=== PATIENT | female | born 1955 | race Caucasian/White ===

== ENCOUNTER 2019-04-12 09:44 | Emergency (ER) | payer OTHER, SELFPAY ==
[2019-04-12] MEDS ORDERED: Dexamethasone 10 MG/ML VIAL ONE (10:18)
[2019-04-12] MEDS ORDERED: Famotidine 20 MG TAB ONE (10:30)
== END 2019-04-12 10:47 | disposition home or self-care (01) ==
LOC: MADERS 09:44
DX: L50.8 Other urticaria (principal); K21.9 Gastro-esophageal reflux disease without esophagitis; I10 Essential (primary) hypertension; J44.9 Chronic obstructive pulmonary disease, unspecified; Z87.891 Personal history of nicotine dependence; F41.9 Anxiety disorder, unspecified; Z79.899 Other long term (current) drug therapy; Z79.51 Long term (current) use of inhaled steroids
CPT/HCPCS: 96372; 99282; J1100

== ENCOUNTER 2021-11-13 11:15 | Inpatient (IN) | payer MEDICARE ==
[2021-11-13 15:23] VITALS: BMI 27.6
[2021-11-13] MEDS ORDERED: Non-Formulary Item 1 EACH (Esomeprazole Magnesium [Nexium 24hr] 20 MG Capsule.Dr) PO PRN (17:09)
[2021-11-13] MEDS: Famotidine 20 MG TAB PO SCH (21:32)
[2021-11-13] MEDS: Hydroxychloroquine Sulfate 200 MG TAB PO SCH (21:32)
[2021-11-13] MEDS: Gabapentin 300 MG CAP PO SCH (21:32)
[2021-11-13] MEDS: Metoprolol Tartrate 25 MG TAB PO SCH (21:33)
[2021-11-13] MEDS: Doxepin HCl 25 MG CAP PO SCH (21:33)
[2021-11-13] MEDS: Mometasone/Formoterol 200/5 60 PUFF INH SCH (21:36)
[2021-11-14 05:59] LABS: Hemoglobin 13.9 g/dL (12.0-16.0); Mean Corpuscular HGB CONC 28.6 g/dL (32.0-36.0); Mean Corpuscular Hemoglobin 26.8 pg (27.0-31.0); Mean Corpuscular Volume 93.9 fL (78.0-98.0); Mean Platelet Volume 8.8 fL (7.4-10.4); Platelet Count 291 thou/uL (130-400); RBC Distribution Width 17.8 % (11.5-14.5); Red Blood Cell (RBC) Count 5.17 mill/uL (4.20-5.40); White Blood Cell (WBC) Count 12.6 thou/uL (4.8-10.8)
[2021-11-14 06:15] LABS: Anion Gap 12 mmol/L (10-20); BUN (Urea Nitrogen) 32 mg/dL (9.8-20.1); Calc. Creatinine Clearance 99 mL/min (70-130); Calcium 9.2 mg/dL (7.8-10.44); Carbon Dioxide 28 mmol/L (23-31); Chloride 107 mmol/L (98-107); Glucose 87 mg/dL (80-115); Potassium 3.8 mmol/L (3.5-5.1); Sodium 143 mmol/L (136-145)
[2021-11-14] MEDS: Mometasone/Formoterol 200/5 60 PUFF INH SCH ×2 (08:45→20:47)
[2021-11-14] MEDS: cycloSPORINE, Modified 100 MG CAP PO SCH (08:48)
[2021-11-14] MEDS: Doxepin HCl 25 MG CAP PO SCH ×2 (08:48→20:21)
[2021-11-14] MEDS: Aspirin 325 MG TAB PO SCH (08:48)
[2021-11-14] MEDS: Hydroxychloroquine Sulfate 200 MG TAB PO SCH ×2 (08:48→20:21)
[2021-11-14] MEDS: Metoprolol Tartrate 25 MG TAB PO SCH ×2 (08:49→20:22)
[2021-11-14] MEDS: Famotidine 20 MG TAB PO SCH ×2 (08:49→20:22)
[2021-11-14] MEDS ORDERED: Gabapentin 300 MG CAP PO SCH ×2 (09:00→22:00)
[2021-11-14] MEDS: Gabapentin 300 MG CAP PO SCH ×3 (20:22→21:49)
[2021-11-14] MEDS ORDERED: Mag-Al Plus 1200 MG/1200 MG/120 MG/30 ML UDCUP PO PRN (21:16)
[2021-11-15] MEDS: Aspirin 325 MG TAB PO SCH (08:20)
[2021-11-15] MEDS: Doxepin HCl 25 MG CAP PO SCH ×2 (08:20→20:39)
[2021-11-15] MEDS: cycloSPORINE, Modified 100 MG CAP PO SCH (08:21)
[2021-11-15] MEDS: Hydroxychloroquine Sulfate 200 MG TAB PO SCH ×2 (08:21→20:34)
[2021-11-15] MEDS: Famotidine 20 MG TAB PO SCH ×2 (08:21→20:35)
[2021-11-15] MEDS: Metoprolol Tartrate 25 MG TAB PO SCH ×2 (08:21→20:35)
[2021-11-15] MEDS: Gabapentin 300 MG CAP PO SCH ×2 (08:21→20:35)
[2021-11-15] MEDS: Mometasone/Formoterol 200/5 60 PUFF INH SCH ×2 (08:22→20:41)
[2021-11-15] MEDS: Senokot S 8.6-50 MG TAB PO PRN (20:34)
[2021-11-16] MEDS: Mometasone/Formoterol 200/5 60 PUFF INH SCH ×2 (08:12→22:06)
[2021-11-16] MEDS: Gabapentin 300 MG CAP PO SCH ×2 (08:12→22:01)
[2021-11-16] MEDS: cycloSPORINE, Modified 100 MG CAP PO SCH (08:13)
[2021-11-16] MEDS: Aspirin 325 MG TAB PO SCH (08:13)
[2021-11-16] MEDS: Famotidine 20 MG TAB PO SCH ×2 (08:13→22:07)
[2021-11-16] MEDS: Doxepin HCl 25 MG CAP PO SCH ×2 (08:13→22:01)
[2021-11-16] MEDS: Hydroxychloroquine Sulfate 200 MG TAB PO SCH ×2 (08:13→22:02)
[2021-11-16] MEDS: Metoprolol Tartrate 25 MG TAB PO SCH ×2 (08:15→22:02)
[2021-11-16] MEDS: Senokot S 8.6-50 MG TAB PO PRN (22:00)
[2021-11-17] MEDS: Gabapentin 300 MG CAP PO SCH ×2 (08:39→21:01)
[2021-11-17] MEDS: Famotidine 20 MG TAB PO SCH ×2 (08:39→21:02)
[2021-11-17] MEDS: Metoprolol Tartrate 25 MG TAB PO SCH ×2 (08:39→21:02)
[2021-11-17] MEDS: cycloSPORINE, Modified 100 MG CAP PO SCH (08:39)
[2021-11-17] MEDS: Aspirin 325 MG TAB PO SCH (08:39)
[2021-11-17] MEDS: Hydroxychloroquine Sulfate 200 MG TAB PO SCH ×2 (08:39→21:02)
[2021-11-17] MEDS: Doxepin HCl 25 MG CAP PO SCH ×2 (08:41→21:02)
[2021-11-17] MEDS: Mometasone/Formoterol 200/5 60 PUFF INH SCH ×2 (08:43→21:08)
[2021-11-17 19:50] LABS: SARS-CoV-2 PCR by NAA Not Detected (NotDetected)
[2021-11-18] MEDS: cycloSPORINE, Modified 100 MG CAP PO SCH (09:08)
[2021-11-18] MEDS: Metoprolol Tartrate 25 MG TAB PO SCH ×2 (09:08→21:16)
[2021-11-18] MEDS: Gabapentin 300 MG CAP PO SCH ×2 (09:08→21:16)
[2021-11-18] MEDS: Aspirin 325 MG TAB PO SCH (09:08)
[2021-11-18] MEDS: Hydroxychloroquine Sulfate 200 MG TAB PO SCH ×2 (09:08→21:16)
[2021-11-18] MEDS: Doxepin HCl 25 MG CAP PO SCH ×2 (09:08→21:16)
[2021-11-18] MEDS: Famotidine 20 MG TAB PO SCH ×2 (09:09→21:16)
[2021-11-18] MEDS: Mometasone/Formoterol 200/5 60 PUFF INH SCH ×2 (09:09→21:17)
[2021-11-19 07:35] VITALS: BP 113/72; TEMP 97.8
[2021-11-19] MEDS: Famotidine 20 MG TAB PO SCH (08:22)
[2021-11-19] MEDS: Doxepin HCl 25 MG CAP PO SCH (08:22)
[2021-11-19] MEDS: Aspirin 325 MG TAB PO SCH (08:23)
[2021-11-19] MEDS: cycloSPORINE, Modified 100 MG CAP PO SCH (08:23)
[2021-11-19] MEDS: Hydroxychloroquine Sulfate 200 MG TAB PO SCH (08:23)
[2021-11-19] MEDS: Gabapentin 300 MG CAP PO SCH (08:23)
[2021-11-19] MEDS: Mometasone/Formoterol 200/5 60 PUFF INH SCH (08:24)
== END 2021-11-19 12:15 | disposition home or self-care (01) | DRG 948 ==
LOC: MADMS 13:19
PROVIDERS: ADMIT Family Medicine; ATTEND Family Medicine
DX: R53.81 Other malaise (principal); J44.9 Chronic obstructive pulmonary disease, unspecified; K21.9 Gastro-esophageal reflux disease without esophagitis; I10 Essential (primary) hypertension; R13.10 Dysphagia, unspecified; Z20.822 Contact with and (suspected) exposure to COVID-19; Z87.01 Personal history of pneumonia (recurrent); Z87.891 Personal history of nicotine dependence; Z99.81 Dependence on supplemental oxygen; Z87.440 Personal history of urinary (tract) infections; Z79.899 Other long term (current) drug therapy; Z79.82 Long term (current) use of aspirin
CPT/HCPCS: 36415; 80048; 85027; 94640; 94664; J7502; J7620; U0003; U0005

== ENCOUNTER 2021-11-26 15:02 | Outpatient (CLI) | payer MEDICARE | END 2021-11-26 15:03 | disposition home or self-care (01) | LOC: MADRAD 15:02 | PROVIDERS: ATTEND Family Medicine | DX: J44.9 Chronic obstructive pulmonary disease, unspecified (principal); J98.4 Other disorders of lung | CPT/HCPCS: 71046 ==

== ENCOUNTER 2021-12-29 15:09 | Outpatient (CLI) | payer MEDICARE | END 2021-12-29 15:10 | disposition home or self-care (01) | LOC: MADRAD 15:09 | PROVIDERS: ATTEND Family Medicine | DX: R91.8 Other nonspecific abnormal finding of lung field (principal); J98.4 Other disorders of lung | CPT/HCPCS: 71046 ==

== ENCOUNTER 2022-09-01 10:34 | Observation (INO) | payer MEDICARE ==
[2022-09-01] MEDS ORDERED: Ipratropium/Albuterol 3 ML NEB ONE (10:46)
[2022-09-01] MEDS ORDERED: methylPREDNISolone Sod Succ/PF 125 MG/2 ML VIAL ONE (10:46)
[2022-09-01 11:13] LABS: ALT (SGPT) 24 U/L (8-55); AST (SGOT) 24 U/L (5-34); Albumin 4.2 g/dL (3.4-4.8); Alkaline Phosphatase 95 U/L (40-110); Anion Gap 16 mmol/L (10-20); BUN (Urea Nitrogen) 23 mg/dL (9.8-20.1); Bilirubin, Total 0.4 mg/dL (0.2-1.2); Calc. Creatinine Clearance 0 mL/min (70-130); Calcium 10.2 mg/dL (7.8-10.44); Carbon Dioxide 32 mmol/L (23-31); Chloride 95 mmol/L (98-107); Estimated GFR 72; Globulin 3.3 g/dL (2.4-3.5); Glucose 107 mg/dL (80-115); Magnesium 1.5 mg/dL (1.6-2.6); Potassium 4.9 mmol/L (3.5-5.1); Protein, Total 7.5 g/dL (5.8-8.1); Sodium 138 mmol/L (136-145)
[2022-09-01 11:14] LABS: Band 12 % (5-11); Eosinophils 3 % (0-10); Lymphocytes 20 % (21-51); MDiff Complete? YES; Mean Corpuscular HGB CONC 31.7 g/dL (32.0-36.0); Mean Corpuscular Hemoglobin 29.6 pg (27.0-31.0); Mean Corpuscular Volume 93.3 fl (78.0-98.0); Mean Platelet Volume 8.9 fL (7.4-10.4); Monocytes 12 % (0-10); Neutrophil 53 % (42-75); Platelet Count 192 10x3/uL (130-400); Platelet Morphology Comment Appears Adequate; RBC Distribution Width 13.9 % (11.5-14.5); RBC Morphology Normal; Red Blood Cell (RBC) Count 5.42 mill/uL (4.20-5.40); White Blood Cell (WBC) Count 9.7 10x3/uL (4.8-10.8)
[2022-09-01] MEDS ORDERED: cefTRIAXone\\ROCEPHIN 2 GM VIAL ONE (11:21)
[2022-09-01] MEDS ORDERED: Sodium Chloride 0.9% 250 ML 250 ML ONE (11:21)
[2022-09-01] MEDS ORDERED: Sodium Chloride 0.9% 100 ML ONE (11:21)
[2022-09-01] MEDS ORDERED: Azithromycin 500 MG VIAL ONE (11:21)
[2022-09-01] MEDS ORDERED: Sodium Chloride 0.9% 500 ML ONE ×3 (12:05→13:49)
[2022-09-01] MEDS ORDERED: Magnesium 2 GM/50 ML BAG (IN WATER) ONE (13:03)
[2022-09-01 14:06] VITALS: BMI 31.1
[2022-09-01] MEDS ORDERED: AUTO INJCT IM PRN (16:33)
[2022-09-01] MEDS ORDERED: EPINEPHRINE 0.3 MG/0.3 ML IM PRN (16:33)
[2022-09-01] MEDS: Ipratropium/Albuterol 3 ML NEB NEB SCH ×2 (17:26→20:17)
[2022-09-01] MEDS: Hydroxychloroquine Sulfate 200 MG TAB PO SCH (20:16)
[2022-09-01] MEDS: Doxepin HCl 25 MG CAP PO SCH (20:17)
[2022-09-01] MEDS: Metoprolol Tartrate 25 MG TAB PO SCH (20:17)
[2022-09-02] MEDS: methylPREDNISolone Sod Succ/PF 125 MG/2 ML VIAL IVP SCH ×2 (00:05→04:58)
[2022-09-02] MEDS: Ipratropium/Albuterol 3 ML NEB NEB SCH ×7 (00:09→23:39)
[2022-09-02 07:17] LABS: Anion Gap 14 mmol/L (10-20); BUN (Urea Nitrogen) 21 mg/dL (9.8-20.1); Calc. Creatinine Clearance 90 mL/min (70-130); Calcium 8.9 mg/dL (7.8-10.44); Carbon Dioxide 30 mmol/L (23-31); Chloride 100 mmol/L (98-107); Estimated GFR 88; Glucose 170 mg/dL (80-115); Potassium 4.6 mmol/L (3.5-5.1); Sodium 139 mmol/L (136-145)
[2022-09-02] MEDS: Doxepin HCl 25 MG CAP PO SCH ×2 (08:50→20:08)
[2022-09-02] MEDS: Metoprolol Tartrate 25 MG TAB PO SCH ×2 (08:50→20:10)
[2022-09-02] MEDS: Doxycycline 100 MG CAP PO SCH ×2 (08:50→20:08)
[2022-09-02] MEDS: cycloSPORINE, Modified 100 MG CAP PO SCH (08:50)
[2022-09-02] MEDS: Hydroxychloroquine Sulfate 200 MG TAB PO SCH ×2 (08:50→20:08)
[2022-09-02] MEDS: Aspirin 325 MG TAB PO SCH (08:51)
[2022-09-02] MEDS ORDERED: Acetaminophen 500 MG TAB PO PRN (09:43)
[2022-09-02] MEDS: methylPREDNISolone Sod Succ 40 MG VIAL IVP SCH ×3 (12:50→23:40)
[2022-09-02] MEDS: cefTRIAXone\\ROCEPHIN 1 GM in Sodium Chloride 0.9% 100 ML IVPB SCH (12:50)
[2022-09-02] MEDS ORDERED: Benzonatate 100 MG CAP PO SCH (23:30)
[2022-09-03] MEDS: Ipratropium/Albuterol 3 ML NEB NEB SCH ×4 (04:58→20:30)
[2022-09-03] MEDS: methylPREDNISolone Sod Succ 40 MG VIAL IVP SCH ×3 (05:00→20:33)
[2022-09-03] MEDS: Doxepin HCl 25 MG CAP PO SCH ×2 (09:56→20:32)
[2022-09-03] MEDS: Doxycycline 100 MG CAP PO SCH ×2 (09:56→20:32)
[2022-09-03] MEDS: Aspirin 325 MG TAB PO SCH (09:56)
[2022-09-03] MEDS: Metoprolol Tartrate 25 MG TAB PO SCH ×2 (09:56→20:32)
[2022-09-03] MEDS: Benzonatate 100 MG CAP PO SCH ×3 (09:57→20:32)
[2022-09-03] MEDS: cycloSPORINE, Modified 100 MG CAP PO SCH (09:57)
[2022-09-03] MEDS: Hydroxychloroquine Sulfate 200 MG TAB PO SCH ×2 (09:57→20:32)
[2022-09-03] MEDS ORDERED: methylPREDNISolone Sod Succ/PF 125 MG/2 ML VIAL IVP SCH (12:00)
[2022-09-03] MEDS: cefTRIAXone\\ROCEPHIN 1 GM in Sodium Chloride 0.9% 100 ML IVPB SCH (12:45)
[2022-09-04] MEDS: Ipratropium/Albuterol 3 ML NEB NEB SCH ×3 (02:20→14:35)
[2022-09-04] MEDS: methylPREDNISolone Sod Succ 40 MG VIAL IVP SCH ×2 (05:23→14:30)
[2022-09-04] MEDS: Aspirin 325 MG TAB PO SCH (09:43)
[2022-09-04] MEDS: Benzonatate 100 MG CAP PO SCH ×2 (09:43→14:35)
[2022-09-04] MEDS: Hydroxychloroquine Sulfate 200 MG TAB PO SCH (09:43)
[2022-09-04] MEDS: cycloSPORINE, Modified 100 MG CAP PO SCH (09:44)
[2022-09-04] MEDS: Doxycycline 100 MG CAP PO SCH (09:44)
[2022-09-04] MEDS: Doxepin HCl 25 MG CAP PO SCH (09:44)
[2022-09-04] MEDS: Metoprolol Tartrate 25 MG TAB PO SCH (09:44)
[2022-09-04] MEDS ORDERED: Loratadine 10 MG TAB PO SCH (09:45)
[2022-09-04] MEDS: cefTRIAXone\\ROCEPHIN 1 GM in Sodium Chloride 0.9% 100 ML IVPB SCH (11:45)
[2022-09-04 12:02] VITALS: BP 129/72; TEMP 97.5
== END 2022-09-04 16:01 | disposition swing bed (61) ==
LOC: MADERS 10:34 → INTOOBSV 13:16 → MADMS 13:16
PROVIDERS: ADMIT Family Medicine; ATTEND Family Medicine
DX: J96.21 Acute and chronic respiratory failure with hypoxia (principal); J18.9 Pneumonia, unspecified organism; J44.1 Chronic obstructive pulmonary disease with (acute) exacerbation; I11.9 Hypertensive heart disease without heart failure; M35.1 Other overlap syndromes; E83.42 Hypomagnesemia; E86.0 Dehydration; Z87.891 Personal history of nicotine dependence; Z79.82 Long term (current) use of aspirin; Z79.899 Other long term (current) drug therapy; Z88.0 Allergy status to penicillin; Z99.81 Dependence on supplemental oxygen
CPT/HCPCS: 36415; 71045; 71046; 80048; 80053; 83605; 83735; 83880; 85025; 87040; 93005; 96365; 96367; 96375; J0456; J0696; J1650; J2920; J2930; J3475; J3490; J7030; J7050; J7502; J7611; J7620

== ENCOUNTER 2023-07-29 17:43 | Emergency (ER) | payer MEDICARE ==
[2023-07-29] MEDS ORDERED: Ipratropium/Albuterol 3 ML NEB ONE (18:04)
[2023-07-29] MEDS ORDERED: methylPREDNISolone Sod Succ/PF 125 MG/2 ML VIAL ONE (18:05)
[2023-07-29 18:31] LABS: #Basophils 0.1 thou/uL (0.0-0.2); #Eosinphils 0.4 thou/uL (0.0-0.7); #Neutrophils 8.3 thou/uL (1.40-6.50); %Basophils 0.8 % (0.0-1.0); %Eosinophils 3.8 % (0.0-10.0); %Lymphocytes 16.9 % (21.0-51.0); %Monocytes 8.1 % (0.0-10.0); %Neutrophils 70.4 % (42.0-75.0); Hematocrit 44.1 % (36.0-47.0); Hemoglobin 13.9 g/dL (12.0-16.0); Mean Corpuscular HGB CONC 31.5 g/dL (32.0-36.0); Mean Corpuscular Hemoglobin 30.5 pg (27.0-31.0); Mean Corpuscular Volume 96.8 fl (78.0-98.0); Mean Platelet Volume 8.7 fL (7.4-10.4); Platelet Count 227 10x3/uL (130-400); RBC Distribution Width 14.7 % (11.5-14.5); Red Blood Cell (RBC) Count 4.55 mill/uL (4.20-5.40); White Blood Cell (WBC) Count 11.9 10x3/uL (4.8-10.8)
[2023-07-29 18:37] LABS: Bilirubin Negative (Negative); Blood, Urine Negative (Negative); Clarity Clear (Clear); Glucose, Urine (Dipstick) Negative (Negative); Ketone, Urine Negative (Negative); Leukocyte Negative (Negative); Nitrite Negative (Negative); Protein, Urine (Dipstick) Negative (Neg-Trace); pH, Urine 7.5 (5.0-9.0)
[2023-07-29 18:49] LABS: Troponin I 0.012 ng/mL (< 0.028)
[2023-07-29 18:51] LABS: ALT (SGPT) 15 U/L (8-55); AST (SGOT) 19 U/L (5-34); Albumin 4.1 g/dL (3.4-4.8); Alkaline Phosphatase 81 U/L (40-110); Anion Gap 19 mmol/L (10-20); BUN (Urea Nitrogen) 18 mg/dL (9.8-20.1); Bilirubin, Total 0.5 mg/dL (0.2-1.2); Calc. Creatinine Clearance 0 mL/min (70-130); Calcium 10.4 mg/dL (7.8-10.44); Carbon Dioxide 32 mmol/L (23-31); Chloride 92 mmol/L (98-107); Estimated GFR 81; Globulin 2.9 g/dL (2.4-3.5); Glucose 88 mg/dL (80-115); Magnesium 1.7 mg/dL (1.6-2.6); Potassium 4.6 mmol/L (3.5-5.1); Sodium 138 mmol/L (136-145)
[2023-07-29 18:53] LABS: Bacteria/HPF 1+ HPF (None Seen); CAUTI Indications for Culture Dysuria,urgency,freq; RBC/HPF None Seen HPF (0-3); Urine Culture Reflex No No; WBC/HPF 0-3 HPF (0-3)
[2023-07-29 19:15] LABS: SARS-CoV-2 NAA Rapid Test Not Detected (NotDetected)
== END 2023-07-29 19:32 | disposition home or self-care (01) ==
LOC: MADERS 17:43
DX: J44.1 Chronic obstructive pulmonary disease with (acute) exacerbation (principal); K21.9 Gastro-esophageal reflux disease without esophagitis; I10 Essential (primary) hypertension; Z87.891 Personal history of nicotine dependence; Z79.899 Other long term (current) drug therapy; Z79.82 Long term (current) use of aspirin
CPT/HCPCS: 71045; 80053; 81001; 83735; 83880; 84484; 85025; 87804; 93005; 96374; J2930; J7620; U0002

== ENCOUNTER 2024-04-06 18:15 | Emergency (ER) | payer MEDICARE ==
[2024-04-06 20:37] LABS: Band 2 % (5-11); Hematocrit 45.3 % (36.0-47.0); Hemoglobin 13.8 g/dL (12.0-16.0); Lymphocytes 4 % (21-51); MDiff Complete? YES; Mean Corpuscular HGB CONC 30.5 g/dL (32.0-36.0); Mean Corpuscular Hemoglobin 29.8 pg (27.0-31.0); Mean Corpuscular Volume 97.7 fl (78.0-98.0); Mean Platelet Volume 10.3 fL (7.4-10.4); Monocytes 4 % (0-10); Neutrophil 90 % (42-75); Platelet Count 163 10x3/uL (130-400); RBC Distribution Width 14.5 % (11.5-14.5); Red Blood Cell (RBC) Count 4.64 mill/uL (4.20-5.40); White Blood Cell (WBC) Count 9.1 10x3/uL (4.8-10.8)
[2024-04-06] MEDS ORDERED: Sodium Chloride 0.9% 1,000 ML ONE ×2 (20:38→22:09)
[2024-04-06] MEDS ORDERED: Ketorolac Tromethamine 30 MG (1 mL) VIAL ONE ×2 (20:38→22:09)
[2024-04-06 20:42] LABS: ALT (SGPT) 17 U/L (8-55); AST (SGOT) 15 U/L (5-34); Albumin 3.6 g/dL (3.4-4.8); Alkaline Phosphatase 80 U/L (40-110); Anion Gap 16 mmol/L (10-20); BUN (Urea Nitrogen) 19 mg/dL (9.8-20.1); Bilirubin, Total 0.6 mg/dL (0.2-1.2); Calc. Creatinine Clearance 0 mL/min (70-130); Calcium 9.3 mg/dL (7.8-10.44); Carbon Dioxide 33 mmol/L (23-31); Chloride 89 mmol/L (98-107); Estimated GFR 93; Globulin 3.1 g/dL (2.4-3.5); Glucose 93 mg/dL (80-115); Potassium 4.5 mmol/L (3.5-5.1); Protein, Total 6.7 g/dL (5.8-8.1); Sodium 133 mmol/L (136-145)
[2024-04-06 20:42] LABS: Bilirubin Negative (Negative); Blood, Urine Negative (Negative); Glucose, Urine (Dipstick) Negative (Negative); Ketone, Urine Negative (Negative); Leukocyte Trace (Negative); Nitrite Positive (Negative); Protein, Urine (Dipstick) Negative (Neg-Trace); pH, Urine 5.5 (5.0-9.0)
[2024-04-06 20:43] LABS: Bicarbonate (HCO3v) 36.8 mmol/L (22.0-28.0); CO2 Tension (PvCO2) 55.6 mmHg (42.0-51.0); Calcium, Ionized 1.13 mmol/L (1.15-1.33); Chloride 89 mmol/L (98-107); Hemoglobin - Calc 15.8 g/dL (12.0-16.0); Potassium 4.6 mmol/L (3.5-5.1); Sodium 130 mmol/L (138-145); T. Carbon Dioxide 38.5 mmol/L (22.0-28.0); vO2 Saturation-calc 98.7 % (60.0-85.0)
[2024-04-06 20:43] LABS: Clarity Slightly Cloudy (Clear)
[2024-04-06 20:44] LABS: Bacteria/HPF 1+ HPF (None Seen); CAUTI Indications for Culture Pelvic or flank pain; RBC/HPF 0-3 HPF (0-3); Urine Culture Reflex Yes Yes
[2024-04-06] MEDS ORDERED: Sulfameth/Trimethoprim DS 800-160mg TAB ONE (21:04)
== END 2024-04-06 23:25 | disposition home or self-care (01) ==
LOC: MADERS 18:15
DX: N39.0 Urinary tract infection, site not specified (principal); R00.0 Tachycardia, unspecified; I10 Essential (primary) hypertension; Z87.891 Personal history of nicotine dependence
CPT/HCPCS: 71045; 80053; 81001; 82330; 82435; 82803; 83605; 84132; 84295; 84443; 85014; 85025; 87040; 87077; 87086; 93005; 96361; 96374; 96376; J1885; J7030

== ENCOUNTER 2024-06-12 19:01 | Emergency (ER) | payer MEDICARE ==
[2024-06-12 19:57] LABS: Bilirubin Small (Negative); Blood, Urine Negative (Negative); CAUTI Indications for Culture Dysuria,urgency,freq; Clarity Clear (Clear); Glucose, Urine (Dipstick) Negative (Negative); Ketone, Urine Trace mg/dL (Negative); Leukocyte Negative (Negative); Nitrite Negative (Negative); Protein, Urine (Dipstick) Negative (Neg-Trace); RBC/HPF None Seen HPF (0-3); Specific Gravity, Urine 1.015 (1.005-1.030); WBC/HPF 0-3 HPF (0-3); pH, Urine 6.5 (5.0-9.0)
[2024-06-12 19:58] LABS: Urine Culture Reflex No No
== END 2024-06-12 20:31 | disposition home or self-care (01) ==
LOC: MADERS 19:01
DX: R30.0 Dysuria (principal); K21.9 Gastro-esophageal reflux disease without esophagitis; I10 Essential (primary) hypertension; J44.9 Chronic obstructive pulmonary disease, unspecified; Z79.891 Long term (current) use of opiate analgesic; Z79.899 Other long term (current) drug therapy
CPT/HCPCS: 81001; 99283